=== PATIENT | female | born 1960 | race Caucasian/White ===

== ENCOUNTER 2018-01-21 17:23 | Outpatient (CLI) | payer BC ==
[2018-01-21 18:26] LABS: #Basophils 0.1 thou/uL (0.0-0.2); #Eosinphils 0.1 thou/uL (0.0-0.7); #Lymphocytes 2.8 thou/uL (1.20-3.40); #Monocytes 0.7 thou/uL (0.11-0.59); #Neutrophils 4.5 thou/uL (1.40-6.50); %Basophils 0.9 % (0.0-1.0); %Eosinophils 1.6 % (0.0-10.0); %Lymphocytes 34.2 % (21.0-51.0); %Monocytes 8.1 % (0.0-10.0); %Neutrophils 55.2 % (42.0-75.0); Mean Corpuscular HGB CONC 33.7 g/dL (32.0-36.0); Mean Corpuscular Hemoglobin 30.6 pg (27.0-31.0); Mean Corpuscular Volume 90.8 fL (78.0-98.0); Mean Platelet Volume 7.6 fL (7.4-10.4); Platelet Count 265 thou/uL (130-400); RBC Distribution Width 12.4 % (11.5-14.5); Red Blood Cell (RBC) Count 4.25 mill/uL (4.20-5.40); White Blood Cell (WBC) Count 8.1 thou/uL (4.8-10.8)
[2018-01-21 18:42] LABS: ALT (SGPT) 16 U/L (8-55); AST (SGOT) 14 U/L (5-34); Albumin 4.8 g/dL (3.5-5.0); Alkaline Phosphatase 81 U/L (40-150); Anion Gap 12 mmol/L (10-20); BUN (Urea Nitrogen) 12 mg/dL (9.8-20.1); Bilirubin, Total 0.2 mg/dL (0.2-1.2); Calc. Creatinine Clearance 0 mL/min (70-130); Calcium 9.8 mg/dL (7.8-10.44); Carbon Dioxide 28 mmol/L (22-29); Chloride 103 mmol/L (98-107); Estimated GFR-MDRD 83; Globulin 2.9 g/dL (2.4-3.5); Glucose 92 mg/dL (70-105); Potassium 3.9 mmol/L (3.5-5.1); Protein, Total 7.7 g/dL (6.0-8.3); Sodium 139 mmol/L (136-145)
--- NOTE | 2018-01-22 17:52 | EKG ---
Test Reason : Blood Pressure : / mmHG Vent. Rate : 078 BPM Atrial Rate : 078 BPM P-R Int : 184 ms QRS Dur : 088 ms QT Int : 358 ms P-R-T Axes : 066 074 059 degrees QTc Int : 408 ms Normal sinus rhythm Possible Anterior infarct , age undetermined /Poor R wave progression/ possibly related to lead place ment. Abnormal ECG Confirmed by CAROLYN WELSH ([id number]) on 01/22/2018 5:52:37 PM Referred By: JEFERSON Confirmed By:CAROLYN WELSH
== END 2018-01-21 17:24 | disposition home or self-care (01) ==
LOC: LABBT 17:23
PROVIDERS: ATTEND Surgery
DX: Z01.818 Encounter for other preprocedural examination (principal); K42.9 Umbilical hernia without obstruction or gangrene
CPT/HCPCS: 80053; 85025; 93005; 93010

== ENCOUNTER 2018-01-24 06:46 | Day surgery (SDC) | payer BC ==
[2018-01-21 17:42] VITALS: BMI 25.7
[2018-01-24] MEDS ORDERED: CEFAZOLIN 2 GM/50 ML BAG ONE (07:21)
[2018-01-24] MEDS ORDERED: Fentanyl 100 MCG/2 ML VIAL ONE ×2 (10:19→10:48)
[2018-01-24] MEDS ORDERED: Midazolam HCl 2 mg/2 ml Vial ONE ×2 (10:19→10:48)
[2018-01-24] MEDS ORDERED: Lidocaine 2% Jelly 5 ML TUBE ONE (10:28)
[2018-01-24] MEDS ORDERED: Lidocaine 2% PF 5 ML VIAL ONE (10:28)
[2018-01-24] MEDS ORDERED: Bupivacaine HCl 0.5%/Epinephrine 1:200,000/PF 30 ml Vial ONE (10:28)
--- NOTE | 2018-01-24 11:48 | HP ---
CHIEF COMPLAINT: Umbilical hernia. HISTORY OF PRESENT ILLNESS: The patient is a 57-year-old female, who has a large umbilical bulge, found to have a hernia. PAST MEDICAL HISTORY: Hyperlipidemia, depression, and hypertension. PAST SURGICAL HISTORY: Bilateral tubal ligation and left shoulder surgery. MEDICATIONS: Loratadine, Cymbalta, lisinopril, pravastatin, and ranitidine. FAMILY HISTORY: Father is alive, is in good health. Mother of diabetes. SOCIAL HISTORY: She smokes less than half pack per day. Occasional alcohol. ALLERGIES: NO KNOWN DRUG ALLERGIES. PHYSICAL EXAMINATION: VITAL SIGNS: Height 64, weight 155, body mass index 26.6, blood pressure 116/67, and pulse 75. GENERAL: Well-developed, well-nourished female, in no apparent distress. HEENT: Unremarkable. LUNGS: Clear. HEART: Regular rate and rhythm. ABDOMEN: Soft. There is a 3 cm bulge with a 1.5 cm defect at the umbilicus. EXTREMITIES: Good pulses. No pedal edema. ASSESSMENT: Umbilical hernia. PLAN: Umbilical hernia repair with mesh. CONSENT: I have discussed the planned procedure as well as risk of bleeding, infection, and recurrence. She understands and gives informed consent. Job ID: [id number]
--- NOTE | 2018-01-24 12:37 | OP ---
DATE OF PROCEDURE: 01/24/2018 PREOPERATIVE DIAGNOSIS: Umbilical hernia. PROCEDURE PERFORMED: Umbilical hernia repair with mesh. INDICATION FOR PROCEDURE: This is a 57-year-old female, who has an enlarging umbilical hernia causing pain. FINDINGS: A 2.5 cm defect, 8 cm mesh used. DESCRIPTION OF PROCEDURE: After informed consent was obtained, the patient was taken to the operating room, given general mask anesthesia, placed in supine position. Abdomen was prepped and draped in usual fashion. Local anesthesia was infiltrated subcutaneously and deep. A subumbilical incision was performed. Subcu divided sharply. The hernia sac was dissected from surrounding structures sharply with Metzenbaum scissors down to the fascia. The hernia was reduced, reduction maintained with an 8 cm Proceed mesh patch, which was inserted intra-abdominally, laid out flat. The leads were sutured to the abdominal wall with interrupted 0 Ethibond. Then, the mesh was further secured circumferentially with 0 Ethibond suture. The umbilical skin was sutured to the abdominal wall with interrupted 3-0 Vicryl to restore umbilical contour. The skin was closed with interrupted 4-0 Rapide. Steri-Strips applied. Sterile bandage applied. The patient tolerated the procedure well, transferred to recovery in good condition. Sponge and needle count verified correct x2. Job ID: [id number]
[2018-01-24] MEDS ORDERED: Ondansetron PF 4 MG/2 ML Vial ONE (16:32)
[2018-01-24] MEDS ORDERED: Lidocaine 1% PF 5 ML VIAL ONE (16:32)
[2018-01-24] MEDS ORDERED: Glycopyrrolate 0.2 MG/ML 5 ML SYRINGE ONE (16:32)
[2018-01-24] MEDS ORDERED: PROPOFOL 200 MG/20 ML VIAL ONE (16:32)
== END 2018-01-24 13:53 | disposition home or self-care (01) ==
LOC: SDC 06:46
PROVIDERS: ATTEND Surgery
PROC: 0WUF0JZ Supplement Abdominal Wall with Synthetic Substitute, Open Approach (ICD-10-PCS; principal; 2018-01-24)
DX: K42.9 Umbilical hernia without obstruction or gangrene (principal); E78.5 Hyperlipidemia, unspecified; I10 Essential (primary) hypertension; F32.9 Major depressive disorder, single episode, unspecified; F17.210 Nicotine dependence, cigarettes, uncomplicated; Z79.899 Other long term (current) drug therapy
CPT/HCPCS: C1781; J0670; J2001; J2250; J2405; J2704; J3010

== ENCOUNTER 2018-07-30 15:54 | Outpatient (CLI) | payer BC ==
--- NOTE | 2018-08-02 17:02 | MMO ---
Bilateral MAMMO Bilat Screen [facility]. CLINICAL HISTORY: Patient is 58 years old and is seen for screening. VIEWS: The views performed were: bilateral craniocaudal with tomosynthesis and bilateral mediolateral oblique with tomosynthesis. FILMS COMPARED: The present examination has been compared to prior imaging studies performed at MAMMOGRAM FINDINGS: There are scattered fibroglandular densities. There are no suspicious masses, suspicious calcifications, or new areas of architectural distortion. IMPRESSION: THERE IS NO MAMMOGRAPHIC EVIDENCE OF MALIGNANCY. A ROUTINE FOLLOW-UP MAMMOGRAM IN 1 YEAR IS RECOMMENDED. THE RESULTS OF THIS EXAM WERE SENT TO THE PATIENT. ACR BI-RADS Category 1 - Negative MAMMOGRAPHY NOTE: 1. A negative mammogram report should not delay a biopsy if a dominant of clinically suspicious mass is present. 2. Approximately 10% to 15% of breast cancers are not detected by mammography. 3. Adenosis and dense breasts may obscure an underlying neoplasm.
== END 2018-07-30 15:55 | disposition home or self-care (01) ==
LOC: BICMAMMO 15:54
PROVIDERS: ATTEND Family Medicine
DX: Z12.31 Encounter for screening mammogram for malignant neoplasm of breast (principal)
CPT/HCPCS: 77063; 77067

== ENCOUNTER 2019-08-18 16:02 | Outpatient (CLI) | payer BC ==
--- NOTE | 2019-08-18 16:47 | MMO ---
Bilateral MAMMO Bilat Screen [facility]. CLINICAL HISTORY: Patient is 59 years old and is seen for screening. The patient has no family history of breast cancer. The patient has no personal history of cancer. VIEWS: The views performed were: bilateral craniocaudal with tomosynthesis and bilateral mediolateral oblique with tomosynthesis. FILMS COMPARED: The present examination has been compared to prior imaging studies performed at and at [facility] on 07/30/2018. This study has been interpreted with the assistance of computer-aided detection. MAMMOGRAM FINDINGS: There are scattered fibroglandular densities. Benign calcifications are noted bilaterally. There is suggestion of a left subaerolar nodule. In the right breast, there are no suspicious masses, calcifications or areas of architectural distortion. IMPRESSION: FINDING IN THE LEFT BREAST REQUIRES ADDITIONAL EVALUATION. SPOT COMPRESSION IS RECOMMENDED. AN ULTRASOUND EXAM IS RECOMMENDED. ADDITIONAL IMAGING. THE RESULTS OF THIS EXAM WERE SENT TO THE PATIENT. ACR BI-RADS Category 0 - Incomplete: Need additional imaging evaluation. [facility] will notify the patient of the need for additional imaging services. MAMMOGRAPHY NOTE: 1. A negative mammogram report should not delay a biopsy if a dominant of clinically suspicious mass is present. 2. Approximately 10% to 15% of breast cancers are not detected by mammography. 3. Adenosis and dense breasts may obscure an underlying neoplasm. Reported by: CONNOR LIAO MD Electonically Signed: [id number]
== END 2019-08-18 16:03 | disposition home or self-care (01) ==
LOC: BICMAMMO 16:02
PROVIDERS: ATTEND Family Medicine
DX: Z12.31 Encounter for screening mammogram for malignant neoplasm of breast (principal)
CPT/HCPCS: 77063; 77067

== ENCOUNTER 2019-08-20 14:55 | Outpatient (CLI) | payer BC ==
--- NOTE | 2019-08-20 15:22 | MMO ---
Left Breast MAMMO Unilat Diag [facility]. CLINICAL HISTORY: Patient is 59 years old and is seen for diagnostic exam. The patient has no family history of breast cancer. The patient has no personal history of cancer. VIEWS: The views performed were: left craniocaudal with tomosynthesis; left mediolateral oblique with tomosynthesis; and left mediolateral with tomosynthesis. FILMS COMPARED: The present examination has been compared to prior imaging studies performed at 07/30/2018, 08/18/2019 and 08/20/2019. This study has been interpreted with the assistance of computer-aided detection. MAMMOGRAM FINDINGS: There are scattered fibroglandular densities. Additional views were performed. Nodular density in the left subaerolar breast persists and corresponds to cysts on US. There are no suspicious masses, suspicious calcifications, or new areas of architectural distortion. IMPRESSION: THERE IS NO MAMMOGRAPHIC EVIDENCE OF MALIGNANCY. A ROUTINE FOLLOW-UP MAMMOGRAM IN 1 YEAR IS RECOMMENDED. THE RESULTS OF THIS EXAM WERE SENT TO THE PATIENT. ACR BI-RADS Category 2 - Benign finding MAMMOGRAPHY NOTE: 1. A negative mammogram report should not delay a biopsy if a dominant of clinically suspicious mass is present. 2. Approximately 10% to 15% of breast cancers are not detected by mammography. 3. Adenosis and dense breasts may obscure an underlying neoplasm. Reported by: CONNOR LIAO MD Electonically Signed: [id number]
--- NOTE | 2019-08-20 15:25 | ULT ---
LEFT BREAST ULTRASOUND: HISTORY: Abnormal mammogram. FINDINGS: Correlation is made with mammograms of 08/18/2019 and today. Sonographic evaluation of the retroareolar aspect of the left breast demonstrates 2 cysts at the 12 o 'clock position measuring 7 and 4 mm respectively corresponding to the mammographic finding. IMPRESSION: BIRADS category 2 - benign findings. Return to annual mammographic screening.
== END 2019-08-20 14:56 | disposition home or self-care (01) ==
LOC: BICMAMMO 14:55
PROVIDERS: ATTEND Family Medicine
DX: N63.20 Unspecified lump in the left breast, unspecified quadrant (principal)
CPT/HCPCS: G0279

== ENCOUNTER 2020-08-26 15:58 | Outpatient (CLI) | payer BC | END 2020-08-26 15:59 | disposition home or self-care (01) | LOC: BICMAMMO 15:58 | PROVIDERS: ATTEND Family Medicine | DX: Z12.31 Encounter for screening mammogram for malignant neoplasm of breast (principal) | CPT/HCPCS: 77063; 77067 ==

== ENCOUNTER 2021-08-29 08:05 | Outpatient (CLI) | payer BC | END 2021-08-29 08:06 | disposition home or self-care (01) | LOC: BICMAMMO 08:05 | PROVIDERS: ATTEND Family Medicine | DX: Z12.31 Encounter for screening mammogram for malignant neoplasm of breast (principal) | CPT/HCPCS: 77063; 77067 ==